=== PATIENT | male | born 1990 | race Hispanic/Latino ===

== ENCOUNTER 2020-08-11 11:50 | Emergency (ER) | payer OTHER ==
[2020-08-11] MEDS ORDERED: KETOROLAC TROMETHAMINE 30MG/ML ONE (12:04)
[2020-08-11] MEDS ORDERED: ONDANSETRON HCL 4 MG/2 ML VIAL ONE (12:04)
[2020-08-11 12:21] LABS: BASOPHILS % (AUTO) 0.4 % (0.0-5.0); EOSINOPHILS % (AUTO) 1.1 % (0.0-8.0); HEMATOCRIT 46.9 % (42-54); LYMPHOCYTES % (AUTO) 19.8 % (21.0-51.0); MEAN CORPUSCULAR HEMOGLOBIN 30.5 pg (27.0-33.0); MEAN CORPUSCULAR VOLUME 84.7 fL (79-99); MONOCYTES % (AUTO) 9.1 % (3.0-13.0); NEUTROPHILS % (AUTO) 69.3 % (40.0-77.0); PLATELET COUNT (AUTO) 186 K/uL (130-400); RED BLOOD CELL COUNT(AUTO) 5.54 MIL/uL (4.50-6.20); RED CELL DISTRIBUTION WIDTH 11.9 % (11.0-15.5); WHITE BLOOD COUNT (AUTO) 10.1 K/uL (4.8-10.8)
[2020-08-11 12:23] LABS: APPEARANCE,URINE Clear (CLEAR); BILIRUBIN,URINE Negative (NEGATIVE); COLOR,URINE Yellow (YELLOW); GLUCOSE, URINE (UA) >=1000 mg/dL (NEGATIVE); KETONES,URINE Negative (NEGATIVE); LEUKOCYTE ESTERASE ,URINE Negative (NEGATIVE); NITRATE,URINE Negative (NEGATIVE); OCCULT BLOOD,URINE Large (NEGATIVE); PROTEIN,URINE Negative (NEGATIVE); UROBILINOGEN,URINE 0.2 mg/dL (0.2-1.0)
[2020-08-11 12:29] LABS: AMPHET/METH SCREEN,URINE NEGATIVE (NEGATIVE); BARBITURATE SCREEN, URINE NEGATIVE (NEGATIVE); BENZODIAZEPINES SCREEN,URINE NEGATIVE (NEGATIVE); CANNABINOID SCREEN,URINE NEGATIVE (NEGATIVE); COCAINE SCREEN,URINE NEGATIVE (NEGATIVE); OPIATE SCREEN,URINE NEGATIVE (NEGATIVE); PHENCYCLIDINE SCREEN,URINE NEGATIVE (NEGATIVE)
[2020-08-11 12:30] LABS: CREATININE 1.2 mg/dL (0.5-1.5); POTASSIUM 4.1 mmol/L (3.5-5.1)
[2020-08-11 12:34] LABS: ALBUMIN 4.1 g/dL (3.5-5.0); BILIRUBIN,DIRECT 0.1 mg/dL (0.0-0.3); BILIRUBIN,TOTAL 0.6 mg/dL (0.2-1.0); TOTAL PROTEIN, SERUM 7.9 g/dL (6.0-8.3)
[2020-08-11 12:37] LABS: BACTERIA,URINE Rare /HPF (None Seen); SQUAMOUS EPITHELIAL CELL,UR Rare /HPF (0-2); WBC,URINE 0-1 /HPF (0-1)
== END 2020-08-11 12:54 | disposition home or self-care (01) ==
LOC: EDH 11:50
DX: N20.0 Calculus of kidney (principal)
CPT/HCPCS: 36415; 80048; 80076; 80305; 81001; 82550; 83690; 85025; 96361; 96374; 96375; 99284; J1885; J2405

== ENCOUNTER 2024-10-16 09:18 | Emergency (ER) | payer BC ==
[~2024-10-16] VITALS: Ht 167.6 cm; Wt 108.9 kg
[2024-10-16 09:20] VITALS: TEMP 99.5
--- NOTE | 2024-10-16 09:43 | ERN ---
ED Note History of Present Illness Stated Complaint: HEADACHE\BACKAPAIN Chief Complaint: Headache Time Seen by MD: 09:21 Dictation: Patient is a 33-year-old male came to the ED with chief complaint of headache since last night. Patient had headache over the occipital region which started last night and also informed that it radiates downwards over the back when he flexes the neck. The pain does not change on any position and the pain comes and goes. Patient informed that he had changed his car tire yesterday. Allergies: Coded Allergies: No Known Drug Allergies (Unverified Allergy, Unknown, 08/11/20) Home Meds Active Scripts Cyclobenzaprine HCl (Cyclobenzaprine HCl) 5 Mg Tablet, 1 TAB PO BID PRN for muscle spasms, #10 TAB 0 Refills Prov:EDILIA VELIZ MD 10/16/24 Past Medical History Past Medical History: No Pertinent History Surgical History: Other Surgical History Other: COLON Review of System Dictation Constitutional-no chills, weight loss/gain, fever. Patient has headache Eyes-no injury, pain, redness and discharge ENT-no injury, pain, swelling Cardiovascular no chest pain, palpitations, edema Respiratory no shortness of breath, cough, wheezing Abdomen/GI-no abdominal pain, diarrhea, constipation, vomiting, nausea Back no injury and pain Genitourinary no injury, bleeding and discharge Musculoskeletal/extremities no injury, deformity Skin no rash, discoloration Neuro-no weakness, numbness, tingling, seizures, tremors Psych-no suicidal ideation, homicidal ideation, hallucinations, depression, anxiety, memory loss Initial Vital Sign VS Vital Signs Date Time Temp Pulse Resp B/P (MAP) Pulse Ox O2 Delivery O2 Flow Rate FiO2 10/16/24 09:20 99.5 78 20 130/88 97 Room Air 0 10/16/24 09:20 21 Physical Exam Dictation General-patient is awake alert and oriented Head/neck-normocephalic, atraumatic Eyes-PERRL, EOMI, vision at baseline Neck-trachea midline, supple, no nuchal rigidity Cardiovascular-RRR, normal S1/S2, no MRG is, no JVD Respiratory-no distress, wheezing, rales, rhonchi Abdomen-no tenderness, guarding, soft, nondistended Skin warm, dry, normal turgor, no rash Musculoskeletal/extremities pulses equal, no cyanosis Neuro-COA X 4, GCS 15, strength 5/5, CN 2-12 intact Psych-normal behavior, mood and affect normal Results (Laboratory/Radiology) Laboratory/Radiology Laboratory Tests Test 10/16/24 09:28 Influenza Type A Antigen Negative For Type A Influenza Type B Antigen Negative For Type B SARS-CoV-2 Antigen (Rapid) PRESUMPTIVE NEGATIVE Group A Streptococcus Rapid negative (NEGATIVE) ED Course ED Course Orders Procedure Category Date Status Time Covid19 (Sars Antigen LAB 10/16/24 Complete Rapid) 09: Influenza Type A & B, LAB 10/16/24 Complete Rapid 09: Rapid (Group A Strep) LAB 10/16/24 Complete 09: Cyclobenzaprine Hcl PHA 10/16/24 Complete (Cyclobenzaprine Hcl 10:00 Ketorolac PHA 10/16/24 Complete Tromethamine 15mg/Ml 10:00 Current Medications Medications (Trade) Dose Ordered Sig/Leighann Route PRN Reason Start Time Stop Time Status Last Admin Dose Admin Cyclobenzaprine HCl (Cyclobenzaprine HCl) 5 mg ONCE ONCE PO 10/16/24 10:00 10/16/24 10:01 DC 10/16/24 10:08 Ketorolac Tromethamine (toRADol) 15 mg ONCE ONCE IM 10/16/24 10:00 10/16/24 10:01 DC 10/16/24 10:07 Vital Signs Date Time Temp Pulse Resp B/P (MAP) Pulse Ox O2 Delivery O2 Flow Rate FiO2 10/16/24 11:24 72 20 125/68 98 Room Air* 0 21 10/16/24 09:20 99.5 78 20 130/88 98 Room Air* 0 21 10/16/24 09:20 99.5 78 20 130/88 97 Room Air 0 Medical Decision Making MDM INITIAL IMPRESSION Initial history and physical concerning for muscle strain Contributing medical problems: I have reviewed the triage nursing notes and vital signs. Initial plan: Laboratory evaluation and x-ray DATA REVIEW I have reviewed additional NN, repeat VS, and monitoring where indicated. Heart rate, blood pressure, and O2 saturation are acceptable. ED COURSE Interventions: Pain Medication Reassessment: Patient feels better DISPOSITION Final diagnostic impression: Muscle strain I discussed my findings, clinical impression and treatment recommendations with the patient. I have reviewed the social factors contributing to the patient's presentation and disposition planning. My final plan for disposition was made based upon -mild risk of complications and potential morbidity of the patient's condition. -Discussion with the patient regarding management options. Patient will be discharged with medication DX & DISP Disposition: Discharge Departure Impression: Primary Impression: Strain of muscle of head Additional Impression: Strain of neck muscle Condition: Stable Scripts Cyclobenzaprine HCl (Cyclobenzaprine HCl) 5 Mg Tablet 1 TAB PO BID PRN for muscle spasms, #10 TAB 0 Refills Prov: EDILIA VELIZ MD 10/16/24 Additional Instructions: Come back to the ED if you have any acute or emergency symptoms Try heat or ice, whichever feels better. Apply it for 10 to 20 minutes at a time, several times a day. Put a thin cloth between the heat or ice and your skin. You might also try switching between heat and ice. Be safe with medicines. Read and follow all instructions on the label. Store your prescription pain medicines where no one else can get to them. When you are done using them, dispose of them quickly and safely. Your local pharmacy or hospital may have a drop-off site. Gently rub the area to relieve pain and help with blood flow. Do not massage the area if it hurts to do so. Do not do anything that makes the pain worse. Take it easy for a couple of days. You can do your usual activities if they do not hurt your neck or put it at risk for more stress or injury. To prevent future neck pain, do exercises to stretch and strengthen your neck and back. Learn how to use good posture, safe lifting techniques, and proper body mechanics. Referrals: SELF,REFERRAL (PCP) Time of Disposition: 10:48 I have reviewed I have reviewed the case I have examined patient I performed a substantive portion of the visit. I have reviewed and personally made and approve the management plan that is documented in the notes by myself with CAMPBELL/resident. I acknowledged full responsibility for the patient's management plan. EDILIA VELIZ MD Oct 16, 2024 09:43 YOUSIF JI DO Oct 18, 2024 12:35
[2024-10-16] MEDS: ketOROlac 15MG/ML VIAL (15MG/ML) IM ONE (10:07)
[2024-10-16] MEDS: CYCLOBENZAPRINE HCL 10 MG TABLET PO ONE (10:08)
[2024-10-16] MEDS ORDERED: CYCL5TAB3 PO (10:46)
[2024-10-16 10:53] LABS: RAPID GROUP A STREP negative (NEGATIVE)
[2024-10-16 11:03] LABS: COVID19 (SARS ANTIGEN RAPID) PRESUMPTIVE NEGATIVE (NEGATIVE); INFLUENZA TYPE A Negative For Type A (NEGATIVE); INFLUENZA TYPE B Negative For Type B (NEGATIVE)
[2024-10-16 11:24] VITALS: BP 125/68; PULSE 72; RESP 20; O2SAT 98
== END 2024-10-16 11:25 | disposition home or self-care (01) ==
LOC: EDH 09:18
DX: S09.11XA Strain of muscle and tendon of head, initial encounter (principal); S16.1XXA Strain of muscle, fascia and tendon at neck level, initial encounter; Z20.822 Contact with and (suspected) exposure to COVID-19; Z98.890 Other specified postprocedural states; X58.XXXA Exposure to other specified factors, initial encounter; Y93.89 Activity, other specified; Y92.89 Other specified places as the place of occurrence of the external cause; Y99.8 Other external cause status
CPT/HCPCS: 99284; 87426; 87880; 87804 ×2; 96372; J1885